=== PATIENT | female | born 1965 | race Native Hawaiian/Other Pacific Islander ===

== ENCOUNTER 2017-02-25 23:09 | Observation (INO) | payer OTHER ==
[~2017-02-25] VITALS: Ht 180.3 cm; Wt 133.4 kg
[2017-02-25 23:44] LABS: PLATELET COUNT 296 K/uL (152-353)
[2017-02-25 23:52] LABS: POTASSIUM 3.5 mmol/L (3.6-5.2); SODIUM 140 mmol/L (136-145)
[2017-02-26 00:07] LABS: PARTIAL THROMBOPLASTIN TIME 34.6 SECONDS (24.5-33.6)
[2017-02-26 00:49] VITALS: BP 162/102; TEMP 98
[2017-02-26 02:17] VITALS: BP 132/84; TEMP 98.2; Ht 180.3 cm; Wt 133.4 kg
[2017-02-26] MEDS ORDERED: CARTIA XT120 MG/24 PO (02:29)
[2017-02-26] MEDS ORDERED: HYDR10TA47 PO (02:29)
[2017-02-26] MEDS ORDERED: TRAM50TA PO (02:31)
[2017-02-26] MEDS ORDERED: WARF7.5T5 PO (02:32)
[2017-02-26] MEDS ORDERED: COUMADIN6 MG PO (02:33)
[2017-02-26] MEDS ORDERED: LORA0.5T17 PO (02:34)
[2017-02-26] MEDS ORDERED: LORA1TAB17 PO (02:35)
[2017-02-26] MEDS ORDERED: PANTPAK PO (02:36)
[2017-02-26] MEDS ORDERED: BETAPACE80 MG PO (02:40)
[2017-02-26 04:00] VITALS: BP 101/64; TEMP 97.9
[2017-02-26 07:30] LABS: PLATELET COUNT 255 K/uL (152-353)
[2017-02-26 07:49] LABS: PARTIAL THROMBOPLASTIN TIME 43.3 SECONDS (24.5-33.6)
[2017-02-26 07:50] LABS: POTASSIUM 3.6 mmol/L (3.6-5.2); SODIUM 140 mmol/L (136-145)
[2017-02-26 08:00] VITALS: BP 109/79; TEMP 98.1
[2017-02-26 12:00] VITALS: BP 125/82; TEMP 97.9
--- NOTE | 2017-02-26 15:47 | NUR ---
PT IV DCED. PT HOME MEDS WERE NOT PROFILED AFTER MULTIPLE TIMES BEING SENT TO PHARMACY VIA FAX. PT STATES SHE WILL TAKE HER OWN HOME MEDS. PT STATES SHE NEEDS TO LEAVE TO GO TO WORK. INFORMED TO FOLLOW UP WITHIN [address] MORTON. VERBALIZED UNDERSTANDING OF ALL DC INSTRUCTIONS.
== END 2017-02-26 15:50 | disposition home or self-care (01) ==
LOC: ED 23:09 → MED/SURG 23:30
DX: R07.89 Other chest pain (principal); I48.91 Unspecified atrial fibrillation
CPT/HCPCS: 36415; 80053; 81000; 82550; 84484; 85027; 85610; 85730; 93005; 94760; 99220; G0378; J1650; J2405; J2550